=== PATIENT | male | born 1960 | race Caucasian/White ===

== ENCOUNTER 2021-05-18 09:45 | Outpatient (CLI) | payer BC, SELFPAY ==
--- NOTE | ~2021-05-18 | MR_ITS ---
EXAMINATION: MR knee RT wo con DATE: 05/18/2021 10:38 INDICATION: Right knee pain. TECHNIQUE: Magnetic resonance imaging (MRI) of the right knee was performed without intravenous contr ast. Sequences included axial PD-weighted FS FSE, coronal PD-weighted FSE and PD-weighted FS FSE, sag ittal PD-weighted FSE, and sagittal T2-weighted FS FSE. COMPARISON: None. FINDINGS: Medial compartment: There is a complex tear involving body and posterior horn of medial meniscus. There is full-thickness cartilage loss of tibial condyle involving the central and medial articular surface with moderate bazzi bchondral edema-like marrow signal intensity. There is full-thickness cartilage loss of femoral condy le involving the central and lateral articular surface. There is a subchondral insufficiency fracture of femoral condyle involving the medial articular surface characterized by low signal fracture line and extensive edema-like marrow signal intensity. There is a subchondral cyst of femoral condyle at t he lateral articular surface. There are tiny marginal osteophytes. Lateral compartment: Lateral meniscus is normal. There is deep partial-thickness cartilage loss of tibial condyle posterio rly with mild subchondral edema-like marrow signal intensity. There is cartilage surface irregularity of femoral condyle. There are tiny marginal osteophytes. Patellofemoral compartment: There is full-thickness cartilage loss involving patellar medial and lateral facets and median ridge with mild subchondral edema-like marrow signal intensity. There is shallow partial-thickness cartilag e loss of trochlea with mild subchondral edema-like marrow signal intensity. Ligaments and tendons: The anterior and posterior cruciate ligaments are normal. There are changes of prior sprains of media l collateral ligament and fibular collateral ligament characterized by thickening and increased signa l intensity proximally. There is mild patellar tendinopathy. Fluid: There is a large knee joint effusion. There is trace fluid in a Chatman's cyst. There is mild pes anser inus bursitis. IMPRESSION: 1. Subchondral insufficiency fracture of medial femoral condyle. 2. Severe chondrosis of medial and patellofemoral compartments and moderate chondrosis of lateral com partment. 3. Complex tear of medial meniscus. 4. Large knee joint effusion. Reviewed, dictated and finalized at location [facility]. [facility] [employer] IMPRESSION: 1. Subchondral insufficiency fracture of medial femoral condyle. 2. Severe chondrosis of medial and patellofemoral compartments and moderate cho ndrosis of lateral compartment. 3. Complex tear of medial meniscus. 4. Large knee joint effusion.
== END 2021-05-18 09:46 ==
PROVIDERS: PCP Internal Medicine; Visit Provider Nurse Practitioner Adult Health
DX: M25.461 Effusion, right knee (principal); S83.231A Complex tear of medial meniscus, current injury, right knee, initial encounter; X58.XXXA Exposure to other specified factors, initial encounter
CPT/HCPCS: 73721

== ENCOUNTER → 2022-10-11 13:59 | Outpatient (CLI) | payer BC, SELFPAY ==
--- NOTE | ~2022-10-11 | CT_ITS ---
Noncontrast CT scan of the lumbar spine CLINICAL HISTORY: Spondylosis TECHNIQUE: Axial noncontrast imaging of the lumbar spine was performed. Sagittal and coronal reformat mela images were constructed. Dose reduction technique was used on this scan by utilizing automated ex posure control and iterative reconstruction technique. The dose-length product (DLP) was 360.73 mGy-c m. FINDINGS: No acute fracture identified. 3 mm retrolisthesis of L2 over L3 noted. 3 mm retrolisthesis of L3 over L4 present. 8 mm anterolisthesis of L5 over S1 present. There is posterior fusion hardware from L4 through S1, with bilateral rods and transpedicular screws present. There are interbody fusio n devices at the L4-L5 and L5-S1 disc spaces. There are laminectomy defects of L4 and L5. At L1-L2, there is severe degenerative disc narrowing. No disc bulge or herniation evident. No spinal canal stenosis or definite neural foraminal narrowing. At L2-L3, there is severe degenerative disc narrowing. There is minimal disc bulge. There is mild fac et arthropathy. No yohana central canal stenosis. Neural foramina are probably preserved. At L3-L4, there is severe degenerative disc narrowing. Disc bulge and facet arthropathy result in mil d to moderate central canal stenosis/thecal sac compression. There is moderate bilateral neural malgorzata inal narrowing. At L4-L5, spinal canal is poorly evaluated due to streak artifact. Neural foramina appear preserved. At L5-S1, spinal canal is somewhat poorly evaluated, but no definite canal stenosis evident. Probable mild right neural foraminal narrowing. Left neural foramen probably preserved. Paravertebral soft tissues are unremarkable. Impression: Postoperative changes related to posterior fusion from L4 through S1, as detailed above. 3 mm retrolisthesis of L2 over L3. 3 mm retrolisthesis of L3 over L4. 8 mm anterolisthesis of L5 over S1. Underlying mild to moderate degenerative changes in lumbar spine, as detailed above. Reviewed, dictated and finalized at [facility]. Impression: Postoperative changes related to posterior fusion from L4 through S1, as detail ed above. 3 mm retrolisthesis of L2 over L3. 3 mm retrolisthesis of L3 over L4. 8 mm anterolisthesis of L5 over S1. Underlying mild to moderate degenerative changes in lumbar spine, as detailed a nilson.
== END ==
PROVIDERS: Visit Provider Physical Medicine & Rehabilitation
DX: M43.26 Fusion of spine, lumbar region (principal); M47.816 Spondylosis without myelopathy or radiculopathy, lumbar region; Z98.1 Arthrodesis status
CPT/HCPCS: 72131

== ENCOUNTER 2022-10-16 08:22 | Outpatient (CLI) | payer BC, SELFPAY ==
--- NOTE | ~2022-10-16 | CT_ITS ---
Noncontrast CT scan of the right hip Clinical history: Right hip pain TECHNIQUE: Axial noncontrast imaging of the right hip was performed. Sagittal and coronal reformatted images were constructed. Dose reduction technique was used on this scan by utilizing automated expos ure control and iterative reconstruction technique. The dose-length product (DLP) was 184.33 mGy-cm. FINDINGS: No acute fracture or dislocation is seen. There is subchondral cystic change at the anterol ateral aspect of the acetabulum. No joint effusion evident. Lumbosacral spinal hardware is partially imaged. Visualized musculature about the right hip is unremarkable. No soft tissue mass or fluid collection s een. IMPRESSION: Focal degenerative change at the anterolateral aspect of the hip joint, as noted above. No other significant findings. Reviewed, dictated and finalized at location . IMPRESSION: Focal degenerative change at the anterolateral aspect of the hip joint, as note d above. No other significant findings.
== END 2022-10-16 08:23 | disposition home or self-care (01) ==
PROVIDERS: Visit Provider Physical Medicine & Rehabilitation
DX: M25.551 Pain in right hip (principal)
CPT/HCPCS: 73700

== ENCOUNTER 2022-10-21 15:32 | Outpatient (CLI) | payer BC, SELFPAY ==
--- NOTE | ~2022-10-21 | CT_ITS ---
CORRECTED REPORT Ordering provider changed from Katina Tyson M.D. to Abebe Tyson M.D. 11/22/22-[facility] Clinical Indication: Left lung pulmonary nodule CT Scan of the Chest with Contrast: Technique: Contiguous sections were acquired throughout the chest after intravenous administration of 75 cc of Omnipaque 350. Dose reduction technique was used on this scan by utilizing automated exposure control and iterative reconstruction technique. The dose-length product (DLP) was 271.94 mGy-cm. COMPARISON: 06/24/2018 Findings: There is no evidence of any significant mediastinal, hilar or axillary lymphadenopathy. There is no filling defect in the pulmonary arterial tree to suggest pulmonary embolus. There is no evidence of aortic dissection or aneurysm. There is no evidence of pleural or pericardial effusion. Stable 3 mm left apical pulmonary nodule. No other pulmonary abnormality evident. Images through the upper abdomen reveal no abnormalities. Impression: No evidence of pulmonary embolus, aortic dissection, or aortic aneurysm. Stable 3 mm left apical pulmonary nodule. Stability over this time interval is compatible with benignity. Reviewed, dictated and finalized at [facility]. MTDD Impression: No evidence of pulmonary embolus, aortic dissection, or aortic aneurysm. Stable 3 mm left apical pulmonary nodule. Stability over this time interval is compatible with benignity.
[2022-10-21 15:53] LABS: Estimated Glomerular Filt Rate > 60
== END 2022-10-21 15:33 ==
PROVIDERS: Student in an Organized Health Care Education/Training Program; PCP Family Medicine; Visit Provider Family Medicine
DX: R91.1 Solitary pulmonary nodule (principal)
CPT/HCPCS: 71260; Q9967